=== PATIENT | female | born 1935 | race African-American/Black ===

== ENCOUNTER 2016-09-18 08:33 | Day surgery (SDC) ==
[2013-06-01 14:33] VITALS: BMI 36.1
[2016-09-18] MEDS ORDERED: LIDOCAINE 1% 20 ML MDV ONE (09:39)
[2016-09-18] MEDS ORDERED: LIDOCAINE 1% 20 ML MDV ID ONE (09:39)
[2016-09-18] MEDS ORDERED: VERSED ONE (10:52)
[2016-09-18] MEDS ORDERED: DIPRIVAN 20 ML VIAL IVP ONE (10:52)
[2016-09-18 11:57] VITALS: BP 143/71; TEMP 97
--- NOTE | 2016-09-19 11:47 | OP ---
INDICATIONS FOR PROCEDURE: 81-year-old female presents for colonoscopy exam. She has a past history of polyps with last colonoscopy greater than 5 years ago. MEDICATIONS: SEE ANESTHESIA NOTES. PROCEDURE: COLONOSCOPY, SNARE POLYPECTOMY. REPORT: The risks, benefits, alternatives and limitations were discussed in detail with the patient. Informed consent was obtained. After adequate sedation was achieved, a digital rectal exam revealed good tone, no masses. The colonoscope was introduced into the rectum and advanced under direct visual guidance to the cecum. The cecum was identified by the appendiceal orifice and IC valve. In the cecum there were two diminutive polyps about 3 mm in size. Both of these were removed and destroyed using snare technique. I then slowly withdrew the scope in a circumferential manner examining the mucosa quite carefully. I looked on the proximal and distal side of folds and flexures as best as possible. In the proximal mid ascending colon there is a sessile 5 mm polyp that I removed by snare technique. There is a slightly raised 5 mm polyp in the mid sigmoid that I removed by snare technique. There is small and large mouth diverticula scattered throughout the entire colon. On retroflex view of the anal canal there were small internal hemorrhoids. The prep was good. The withdrawal time was 8 minutes and 51 seconds. The patient tolerated the procedure well with stable vital signs and pulse oximetry throughout. IMPRESSION: 1. Four (4) small or diminutive polyps were removed or destroyed as above. 2. Henderson diverticulosis. 3. Small internal hemorrhoids. RECOMMENDATIONS: 1. High fiber diet. 2. Office visit as needed. 3. Shall restart her Coumadin today with instructions on signs and symptoms of post colonoscopy complications and what to do if such were to occur. 4. Based on her advanced age and health, I suggest future colonoscopies on an as needed only basis. 5. Will see her back in the office as needed. CC: DR. GERI ADKINS
== END 2016-09-18 12:15 | disposition home or self-care (01) ==
LOC: SURG 08:33
PROVIDERS: ATTEND Internal Medicine Gastroenterology
DX: Z09 Encounter for follow-up examination after completed treatment for conditions other than malignant neoplasm (principal); Z86.010 Personal history of colon polyps; D12.2 Benign neoplasm of ascending colon; D12.5 Benign neoplasm of sigmoid colon; K63.5 Polyp of colon; K57.30 Diverticulosis of large intestine without perforation or abscess without bleeding; K64.8 Other hemorrhoids; E11.9 Type 2 diabetes mellitus without complications

== ENCOUNTER 2018-05-30 13:17 | Emergency (ER) | payer OTHER ==
[2018-05-30 13:30] VITALS: TEMP 99.3; BMI 32.9
--- NOTE | 2018-05-30 14:57 | US ---
EXAM: Ultrasound venous Doppler right lower extermity HISTORY: Pain COMPARISON: None TECHNIQUE: Venous duplex ultrasound of the right lower extremity was performed using color, perkins-sca le, and Doppler flow imaging. FINDINGS: There is normal color flow and compression of the right common femoral, greater saphenous, profunda femoral, femoral, popliteal, peroneal, posterior tibial, and anterior tibial veins without evidence of intraluminal thrombus. There is a fluid collection in the right popliteal fossa with mil d internal echoes, measuring 1.0 x 1.4 x 5.5 cm. IMPRESSION: 1. No right lower extremity deep venous thrombosis. 2. Right Hamm's cyst.
--- NOTE | 2018-05-30 15:19 | ED.PDOC ---
General ED Provider: Dr. TONI TURPIN Chief Complaint: Extremity Pain/Injury Stated Complaint: left lower ext pain Time Seen by Physician: 13:17 (seen with boris) Mode of Arrival: Walk-In Information Source: Patient Exam Limitations: No limitations Primary Care Provider: ELLEN NEVAREZ Nursing and Triage Documentation Reviewed and Agree: Yes Does patient meet sepsis criteria?: No If yes, has appropriate treatment been initiated?: No System Inflammatory Response Syndrome: Not Applicable Sepsis Protocol: For patient's 13 years and over: Temp is 96.8 and below OR 101 and greater Pulse >90 BPM Resp >20/minute Acutely Altered Mental Status Are patient's symptoms suggestive of a new infection, such as: -Pneumonia -Skin, Soft Tissue -Endocarditis -UTI -Bone, Joint Infection -Implantable Device -Acute Abdominal Infection -Wound Infection -Meningitis -Blood Stream Catheter Infection -Unknown Musculoskeletal Complaint Exam - Lower Extremity Complaint/Exam Location of Pain: Reports: Left, Leg Mechanism of Injury: Reports: No known trauma Symptoms Are: Still present Initial Severity: Mild Current Severity: Mild Location: Reports: Discrete (lower leg) Character: Reports: Dull Alleviating: Reports: None Aggravating: Reports: None Able to Bear Weight: Yes Associated Signs and Symptoms: Denies: Swelling, Redness, Bruising, Fever, Weakness, Numbness, Tingling Related History: Reports: Similar episode DVT Risk Factors: Reports: Prior PE Septic Arthritis Risk Factors: Reports: Extremes of age Related Surgical History: Reports: None Lower Extremity Findings: Absent: Swelling, Ecchymosis, Abnormal contour Review of Systems - Review Of Systems Constitutional: Reports: No symptoms Eyes: Reports: No symptoms Ears, Nose, Mouth, Throat: Reports: No symptoms Respiratory: Reports: No symptoms Cardiac: Reports: No symptoms GI: Reports: No symptoms : Reports: No symptoms Musculoskeletal: Reports: Other (leg pain) Skin: Reports: No symptoms Neurological: Reports: No symptoms Endocrine: Reports: No symptoms Hematologic/Lymphatic: Reports: No symptoms All Other Systems: Reviewed and Negative Past Medical History - Past Medical History Previously Healthy: Yes Endocrine: Reports: DM 2 Cardiovascular: Reports: Hypertension Respiratory: Reports: None Hematological: Reports: None Gastrointestinal: Reports: None Genitourinary: Reports: None Neuro/Psych: Reports: None Musculoskeletal: Reports: None Cancer: Reports: None Last Menstrual Period: na - Surgical History General Surgical History: Reports: None - Family History Family History: Reports: None - Social History Smoking Status: Former smoker Hx Substance Use: No Alcohol Screening: None - Immunizations Tetanus Shot up to Date: No Physical Exam - Physical Exam Appearance: Well-appearing, No pain distress, Well-nourished Eyes: ZAHIRA, EOMI, Conjunctiva clear ENT: Ears normal, Nose normal, Oropharynx normal Respiratory: Airway patent, Breath sounds clear, Breath sounds equal, Respirations nonlabored Cardiovascular: RRR, Pulses normal, No rub, No murmur GI/: Soft, Nontender, No masses, Bowel sounds normal, No Organomegaly Musculoskeletal: Normal strength, ROM intact, No edema, No calf tenderness Skin: Warm, Dry, Normal color Neurological: Sensation intact, Motor intact, Reflexes intact, Cranial nerves intact, Alert, Oriented Psychiatric: Affect appropriate, Mood appropriate Interpretation - Radiology Interpretation Radiology Interpretation By: Radiologist Radiology Results: No acute changes Critical Care Note - Critical Care Note Total Time (mins): 0 Course - Course Hematology/Chemistry: 05/30/18 13:50 05/30/18 13:50 Orders, Labs, Meds: Lab Review 05/30/18 05/30/18 05/30/18 13:50 13:50 13:50 WBC 7.42 RBC 4.33 Hgb 13.3 Hct 39.8 MCV 91.9 MCH 30.7 MCHC 33.4 RDW Coeff of Roni 13.1 Plt Count 301 Immature Gran % (Auto) 0.4 Neut % (Auto) 64.5 Lymph % (Auto) 22.8 [place] % (Auto) 9.3 Eos % (Auto) 2.2 Baso % (Auto) 0.8 Immature Gran # (Auto) 0.0 Neut # (Auto) 4.8 Lymph # (Auto) 1.7 [place] # (Auto) 0.7 Eos # (Auto) 0.2 Baso # (Auto) 0.1 PT 30.3 H INR 3.13 APTT 31.9 Sodium 133.2 L Potassium 3.94 Chloride 98.9 Carbon Dioxide 28.1 Anion Gap 10.14 BUN 22.6 H Creatinine 1.10 Estimated GFR (MDRD) 57.00 BUN/Creatinine Ratio 20.54 Glucose 131.8 H Calcium 9.11 Total Bilirubin 0.36 AST 28.7 ALT 18.7 Alkaline Phosphatase 53.1 Total Protein 7.17 Albumin 4.21 Globulin 2.96 Albumin/Globulin Ratio 1.42 Orders Category Date Time Status CBC W/ AUTO DIFF Stat LAB 05/30/18 13:50 Completed COMPREHENSIVE METABOLIC PANEL Stat LAB 05/30/18 13:50 Completed PARTIAL THROMBOPLASTIN TIME Stat LAB 05/30/18 13:50 Completed PT WITH INR Stat LAB 05/30/18 13:50 Completed U/S VENOUS SCAN RT LEG Stat RADS 05/30/18 13:37 Completed Vital Signs: Temp Pulse Resp BP Pulse Ox 05/30/18 13:17 99.3 F 88 16 191/84 H 96 Departure - Departure Time of Disposition: 15:19 Disposition: HOME SELF-CARE Discharge Problem: Leg pain Qualifiers: Laterality: right Qualified Code(s): M79.604 - Pain in right leg Hamm's cyst Qualifiers: Laterality: right Qualified Code(s): M71.21 - Synovial cyst of popliteal space [Hamm], right knee Instructions: Bakers Cyst (ED) Condition: Good Pt referred to PMD for follow-up: Yes IPMP verified?: No Additional Instructions: Please call your Family Physician as soon as possible to schedule a follow-up appointment. Allergies/Adverse Reactions: Allergies aspirin Adverse Reaction (Verified 05/30/18 13:24) bisacodyl [From Dulcolax] Adverse Reaction (Verified 05/30/18 13:24) Home Medications: Ambulatory Orders Metformin HCl [Metformin HCl ER] 500 mg PO DAILY 11/27/12 Metoprolol Succinate [Toprol Xl] 25 mg PO BID 11/27/12 Warfarin Sodium [Coumadin] 5 mg PO DAILY 11/27/12 Lisinopril/Hydrochlorothiazide [Lisinopril-Hctz 20-25 mg Tab] 1 tab PO DAILY 09/12 Simvastatin 40 mg PO BEDTIME 05/30/18 Triamterene/Hydrochlorothiazid [Triamterene-Hctz 75-50 mg Tab] 1 tab PO DAILY
[2018-05-30 15:34] VITALS: BP 143/86
== END 2018-05-30 15:35 | disposition home or self-care (01) ==
LOC: ED 13:17
DX: M79.604 Pain in right leg (principal); M71.21 Synovial cyst of popliteal space [Baker], right knee
CPT/HCPCS: 36415; 80053; 85025; 85610; 85730; 99283